=== PATIENT | female | born 1960 | race Caucasian/White ===

== ENCOUNTER 2024-03-02 19:10 | Emergency (ER) | payer OTHER, SELFPAY ==
[2024-03-02 19:13] VITALS: BP 186/106
[2024-03-02 19:29] VITALS: BP 175/82
--- NOTE | 2024-03-02 19:29 | ED.GENMED ---
History of Present Illness
General
Chief Complaint: Blood Pressure Problem
Source: patient
Exam Limitations: none
Time Seen by Provider: 03/02/24 19:20
History of Present Illness
History of Present Illness:
This is a 63 year old female that comes in with by ambulance with c/o shaking. States that she has been shaking on and off since this morning. States that this comes and goes. States that today her daughter took her BP and it was 180 over something.
States that she has had slight SOB and a headache. States that her last alcoholic drink was this afternoon. Denies any fever, chills, chest pain, abd pain, nausea, vomiting, diarrhea, dizziness, urinary burning.
Past History
Past History
ED Past Medical History: None; Negative Asthma, HTN, Hypercholesterolemia or NIDDM
ED Past Surgical History: Gynecological (Hysterectomy)
Social History
Tobacco: Former smoker
Alcohol: Occasional (Tequila 4 glasses)
Review of Systems
Review of Systems
All Other Systems: ROS reviewed and negative except as documented in HPI and ROS
Constitutional: Reports no symptoms; Denies fever or chills
EENT: Reports no symptoms
Respiratory: Reports trouble breathing; Denies cough
Cardiac: Reports no symptoms; Denies chest pain
ABD/GI: Denies abdominal pain, nausea, vomiting or diarrhea
: Reports no symptoms; Denies dysuria, frequency or urgency
Musculoskeletal: Reports no symptoms
Skin: Reports no symptoms
Neurological: Reports headache and other (Shaking on and off); Denies dizzy
Psychiatric: Reports no symptoms
Phy Exam
General Physical Exam
General Presentation: no apparent distress
General age: appears stated age
General Skin: warm and dry
General Habitus: normal
General Mental: alert
General Hydration: dry mucous membranes
ENT Exam
ENT Exam: TM's normal, pharynx normal and neck supple
Eye Exam
Eye Exam: EOMI
Cardiovascular Exam
Cardiovascular Exam: regular rate/rhythm, no edema, no murmur and normal peripheral pulses
Pulmonary Exam
Pulmonary Exam: lungs clear, no respiratory distress, no rales, chest non tender, no crackles, no rhonchi, no wheezing and no cough
Gastrointestinal Exam
Gastrointestinal Exam: normal bowel sounds, non tender, soft, no organomegaly, no pulsatile mass and non distended
Musculoskeletal Exam
Musculoskeletal Exam: full ROM and no edema
Skin Exam
Skin Exam: normal color, warm/dry, no rash and no petechia
Course
Orders/Labs/Results
Orders:
Orders
03/02/24 19:13
Electrocardiogram (*1) Urgent
Reason for Study: Chest Pain
Cardiac Monitoring- Treatment ONCE
EKG- Treatment ONCE
IV Insert/Care/Rem.- Treatment PRN
O2 Therapy [RESP] Urgent
Titrate/Wean O2 to maintain O2 sat greater than (%): 90
Special Instructions: Maintain sats >/=90%
Pulse Ox/spot Check [RESP] Urgent
Quantity: 1
Special Instructions: ON ROOM AIR
03/02/24 19:25
Alcohol Urgent
Complete Blood Count/With Diff Urgent
Comprehensive Metabolic Panel Urgent
03/02/24 19:28
Add On- LAB Urgent
Tests Added?: alcohol
0.9% Sodium Chloride 1000 ml [Nss] 1,000 ml IV BOLUS
HydrALAZINE [Apresoline] 5 mg IV NOW STA
03/02/24 19:32
Acetaminophen [Tylenol] 1,000 mg PO NOW STA
03/02/24 20:12
Urinalysis Reflex To Culture Urgent
Date Specimen was Collected: 03/02/24
Time Specimen was Collected: 19:57
Urine Drug Abuse Screen Urgent
Date Specimen was Collected: 03/02/24
Time Specimen was Collected: 19:57
Urine Microscopic Reflex Cult Urgent
Urine Culture Urgent
GAMALIEL Source: U
Specimen Description:
Date Specimen was Collected: 03/02/24
Time Specimen was Collected: 19:57
Abnormal Lab Results
03/02/24 03/02/24
19:25 20:12
RBC 3.87 L 10^6/uL
(4.20-5.40)
MCH 33.6 H pg
(27.0-31.0)
Absolute Lymphs (auto) 1.1 L 10^3/uL
(1.2-3.4)
Absolute Monos (auto) 0.8 H 10^3/uL
(0.1-0.6)
Lymphocytes % 14.8 L %
(20.5-51.1)
Monocytes % 10.4 H %
(1.7-9.3)
Sodium 132 L mmol/L
(135-145)
Chloride 97 L mmol/L
(98-107)
Glucose 117 H mg/dl
(70-99)
Leukocyte Esterase Rfl 2+ A
(Negative)
Urine WBC (Reflex) 11-15 A /HPF
(0-5)
Urine Bacteria (Reflex) Few A
(Negative)
03/02/24 19:25
03/02/24 19:25
Sodium slightly low. Glucose nonfasting. Urine positive for infection. Alcohol non detected. Negative urine drug.
Vital Signs
Initial and Last Documented VS:
Initial Vital Signs
Temp Pulse Resp BP Pulse Ox
98.5 F 108 19 186/106 97
03/02/24 19:13 03/02/24 19:13 03/02/24 19:13 03/02/24 19:13 03/02/24 19:13
Last Documented Vital Signs
Temp Pulse Resp BP Pulse Ox
98.5 F 89 18 155/85 97
03/02/24 19:13 03/02/24 20:30 03/02/24 20:30 03/02/24 20:30 03/02/24 20:16
MDM/Problems Addressed
Differential Diagnosis Includes:
Alcohol withdraw, Hypertension
MDM/Problems Addressed:
This is a 63 year old female that comes in with c/o shaking on and off today. States that her BP was also elevated.
Will check labs. Urine, give IV fluids and Tylenol for her headache.
Back into see patient. Explained that her blood work is normal. Explained that she dose have a UTI and that this shaking may be related to this or some alcohol withdraw symptoms. Patient is in agreement with this. Patient has had no shaking here.
Will Medicate for the UTI here and give her Lisinopril for Hypertension as her BP at this time is 175/98. Patient to follow up with the family doctor. Return with any concerns.
Chronic conditions affecting care:
NA
Acute Exacerbation and/or Progression of Chronic Illness:
NA
*Pulse Oximetry
Patient hypoxic: no
*[employer] [place] Interpretation
Rate: normal
Heart Rate: 99
Rhythm: sinus
*Critical Care Note
Total Time (30-74mins, 75-104mins- exclusive of procedures): Not Applicable
ED Attending Note
-
Portions of this chart may have been created with voice recognition software.� Occasional wrong word or��sound alike� substitutions may have occurred due to the inherent limitations of voice recognition software.
Discharge Plan
Departure
Patient Disposition: Home (Routine Discharge)
Date of Disposition: 03/02/24
Time of Disposition: 21:09
Patient with high blood pressure during this ER visit?: Yes
Condition: Good
Covid-19: Not Applicable
Discharge Problem:
Hypertension, Urinary tract infection
Instructions: High Blood Pressure (DC), Urinary Tract Infection, Adult ED
Prescriptions:
New
lisinopril 5 mg tablet
5 mg PO DAILY Qty: 30 0RF
Referrals:
NONE,* [Family Provider] -
Activity Restrictions/Additional Instructions:
As discussed, your blood work shows that your sodium was very slightly low. You also has a urinary tract infection. You have been given an antibiotic here that is a one time dose to treat this infection. Please increase your water intake to 8-8oz
glasses daily. You have also been given a prescription for an antihypertensive medication. THIS HAS BEEN SENT TO YOUR PHARMACY. Please take this daily to help lower your Blood pressure. Please follow up with the family doctor in the next 5-7 days
for recheck. This shaking may also be related to your alcohol intake. If you are use to drinking more in a day and then cut down this will cause withdraw symptoms. You need to cut back on your alcohol intake. IF YOU HAVE ANY OTHER CONCERNS PLEASE
RETURN TO THE EMERGENCY ROOM
Interventions
Interventions:
*Risk Screen - Suicide Last Done: 03/02/24 19:13
*General Assessment Last Done: 03/02/24 19:13
*Neglect/Abuse Screening Last Done: 03/02/24 19:13
*ED COVID-19 Vaccine History Last Done: 03/02/24 19:13
ED- Neurological Assessment Last Done: 03/02/24 20:22
Discharge Date and Time
Print Language: UPPER SORBIAN
[2024-03-02 19:36] LABS: % Basophils 0.8 % (0-2); % Eosinophils 0.4 % (0-6); % Immature Granulocytes 0.5 % (0-0.5); % Lymphocytes 14.8 % (20.5-51.1); % Monocytes 10.4 % (1.7-9.3); % Neutrophils 73.1 % (42.2-75.2); Absolute Basophils 0.1 10^3/uL (0-0.2); Absolute Lymphocytes 1.1 10^3/uL (1.2-3.4); Absolute Monocytes 0.8 10^3/uL (0.1-0.6); Absolute Neutrophils 5.7 10^3/uL (1.4-6.5); Hematocrit 37.1 % (37.0-47.0); Mean Corpuscular Hgb 33.6 pg (27.0-31.0); Mean Corpuscular Volume 95.9 fL (81.0-99.0); Mean Platelet Volume 9.3 fL (7.4-10.4); Nucleated Red Blood Cells % 0 %; Platelet Count 220 10^3/uL (130-400); Red Blood Cell Count 3.87 10^6/uL (4.20-5.40); Red Cell Dist. Width 13.2 % (11.5-14.5); White Blood Cell Count 7.7 10^3/uL (4.8-10.8)
[2024-03-02 19:50] LABS: ALT (SGPT) 18 U/L (0-35); AST (SGOT) 36 U/L (14-36); Alkaline Phosphatase 73 U/L (38-126); Blood Urea Nitrogen 16 mg/dl (7-17); Calcium 10.1 mg/dl (8.4-10.2); Carbon Dioxide 25 mmol/L (22-30); Chloride 97 mmol/L (98-107); Glucose 117 mg/dl (70-99); Potassium 3.6 mmol/L (3.5-5.1); Sodium 132 mmol/L (135-145); Total Bilirubin 0.6 mg/dl (0.2-1.3); Total Protein 7.4 g/dl (6.3-8.2); eGFR > 60.00
[2024-03-02 19:51] LABS: Alcohol None Detected
[2024-03-02] MEDS: TYLENOL 1000 MG PO (20:14)
[2024-03-02] MEDS: NSS 1000 IV (20:15)
[2024-03-02 20:16] VITALS: BP 184/92
[2024-03-02 20:28] LABS: Urine Albumin Negative (Neg - Trace); Urine Bilirubin Negative (Negative); Urine Character Clear (Clear); Urine Color Straw; Urine Glucose Negative (Negative); Urine Ketone Negative (Negative); Urine Leukocyte 2+ (Negative); Urine Nitrite Negative (Negative); Urine Occult Blood Negative (Negative); Urine Specific Gravity 1.005 (<1.030); Urine Urobilinogen Negative (Neg - 1+)
[2024-03-02 20:30] VITALS: BP 155/85
[2024-03-02 20:40] LABS: Urine Bacteria Few (Negative); Urine Red Blood Cell 0-2 /HPF (0-2)
[2024-03-02 20:52] LABS: Amphetamines Negative (Negative); Barbiturates Negative (Negative); Benzodiazepines Negative (Negative); Buprenorphine Negative (Negative); Cocaine Negative (Negative); Marijuana Negative (Negative); Methadone Negative (Negative); Methamphetamines Negative (Negative); Opiates Negative (Negative); Phencyclidine Negative (Negative); Tricyclic Antidepressants Negative (Negative)
[2024-03-02] MEDS: MONUROL 3 GM PO (21:36)
[2024-03-02] MEDS: ZESTRIL 5 MG PO (21:36)
== END 2024-03-02 22:00 | disposition home or self-care (01) ==
LOC: EMR 19:10
PROVIDERS: Clinical Nurse Specialist Family Health; EMERGENCY PHYSICIAN Emergency Medicine
DX: N39.0 Urinary tract infection, site not specified (principal); I10 Essential (primary) hypertension; Z87.891 Personal history of nicotine dependence
CPT/HCPCS: 99284; 96360; 80053; 80306; 81003; 81015; 82077; 85025; 87086; 93005